=== PATIENT | male | born 1995 | race Hispanic/Latino ===

== ENCOUNTER 2021-03-30 07:46 | Emergency (ER) | payer MEDICAID ==
[~2021-03-30] VITALS: Ht 167.6 cm; Wt 68.9 kg
[2021-03-30 08:16] LABS: BASOPHILS % (AUTO) 0.3 % (0.0-5.0); EOSINOPHILS % (AUTO) 0.9 % (0.0-8.0); HEMATOCRIT 42.6 % (42-54); MEAN CORPUSCULAR HEMOGLOBIN 31.2 pg (27.0-33.0); MEAN CORPUSCULAR HGB CONC 36.2 g/dL (32.0-36.0); MEAN CORPUSCULAR VOLUME 86.2 fL (79-99); MONOCYTES % (AUTO) 7.8 % (3.0-13.0); NEUTROPHILS % (AUTO) 39.8 % (40.0-77.0); PLATELET COUNT (AUTO) 302 K/uL (130-400); RED BLOOD CELL COUNT(AUTO) 4.94 MIL/uL (4.50-6.20); RED CELL DISTRIBUTION WIDTH 12.2 % (11.0-15.5)
[2021-03-30 08:27] LABS: APPEARANCE,URINE Clear (CLEAR); BILIRUBIN,URINE Negative (NEGATIVE); COLOR,URINE Yellow (YELLOW); GLUCOSE, URINE (UA) Negative (NEGATIVE); KETONES,URINE Negative (NEGATIVE); LEUKOCYTE ESTERASE ,URINE Negative (NEGATIVE); NITRATE,URINE Negative (NEGATIVE); OCCULT BLOOD,URINE Negative (NEGATIVE); PROTEIN,URINE Negative (NEGATIVE); UROBILINOGEN,URINE 0.2 mg/dL (0.2-1.0)
[2021-03-30 08:27] LABS: CREATININE 0.9 mg/dL (0.5-1.5); POTASSIUM 3.5 mmol/L (3.5-5.1)
[2021-03-30 08:31] LABS: AMPHET/METH SCREEN,URINE NEGATIVE (NEGATIVE); BARBITURATE SCREEN, URINE NEGATIVE (NEGATIVE); BENZODIAZEPINES SCREEN,URINE NEGATIVE (NEGATIVE); CANNABINOID SCREEN,URINE NEGATIVE (NEGATIVE); COCAINE SCREEN,URINE NEGATIVE (NEGATIVE); OPIATE SCREEN,URINE NEGATIVE (NEGATIVE); PHENCYCLIDINE SCREEN,URINE NEGATIVE (NEGATIVE)
[2021-03-30 08:32] LABS: ALBUMIN 4.2 g/dL (3.5-5.0); BILIRUBIN,TOTAL 0.4 mg/dL (0.2-1.0); TOTAL PROTEIN, SERUM 7.8 g/dL (6.0-8.3)
[2021-03-30] MEDS ORDERED: PRED50TA2 PO (09:58)
[2021-03-30] MEDS ORDERED: PREDNISONE 20 MG TABLET PO SCH (10:00)
[2021-03-30 10:32] VITALS: BP 135/80
== END 2021-03-30 10:34 | disposition home or self-care (01) ==
LOC: EDH 07:46
DX: G51.0 Bell's palsy (principal); Z79.52 Long term (current) use of systemic steroids
CPT/HCPCS: 36415; 80053; 80305; 81003; 84484; 85025; 93005

== ENCOUNTER 2024-11-23 02:14 | Emergency (ER) | payer SELFPAY ==
[~2024-11-23] VITALS: Ht 167.6 cm; Wt 76.7 kg
[~2024-11-23 02:14] MED LIST: PRED50TA2 PO
--- NOTE | 2024-11-23 02:17 | NUR ---
REPORT TO ONEIDA CARMEN
[2024-11-23] MEDS ORDERED: KETO10 PO (02:41)
--- NOTE | 2024-11-23 02:42 | ERN ---
General Chief Complaint: Tooth Ache/Pain Stated Complaint: TOOTHACHE Time Seen by MD: 02:22 Source: patient History of Present Illness Initial Comments 29-year-old male otherwise healthy comes in with right upper molar tooth pain from dental decay that he can no longer control with [id number] medications such as Anbesol or Orajel. He is here for pain medications. I offe red to give him a shot and he said no I do not want a shot I will just take a prescription. Allergies: Coded Allergies: No Known Drug Allergies (Unverified Allergy, Unknown, 03/30/21) Home Meds Active Scripts Prednisone (Prednisone) 50 Mg Tablet, 50 MG PO DAILY, #7 TAB Prov:SHALONDA KOHLI MD 03/30/21 Past Medical History Past Medical History: No Pertinent History Past Surgical History: None Social History Social History: Negative, Lives with family Constitutional: (-) chills, (-) diaphoresis, (-) fever, (-) malaise, (-) weakness, (-) other documentation EENTM: (-) eye pain, (-) blurred vision, (-) tearing, (-) double vision, (-) ear pain, (-) ear discharge, (-) nose pain, (-) nose congestion, (-) throat pain, (-) Throat swelling, (-) mouth pain, (-) tooth pain, (-) mouth swelling, (-) other documentation Respiratory: (-) cough, (-) orthopnea, (-) short of breath, (-) stridor, (-) wheezing, (-) other documentation Cardiovascular: (-) chest pain, (-) edema, (-) palpitations, (-) syncope, (-) dyspnea on exertion, (-) other documentation Gastrointestinal/Abdominal: (-) nausea, (-) vomiting, (-) diarrhea, (-) abdominal pain, (-) abdominal distention, (-) constipation, (-) rectal bleeding, (-) dark stool/melena, (-) other documentation Musculoskeletal: (-) Neck pain, (-) back pain, (-) Flank Pain, (-) joint pain, (-) joint swelling, (-) muscle pain, (-) muscle stiffness, (-) gout, (-) other documentation Physical Exam Ear, Nose, Throat Comment Patient has an obvious dental carry on his right upper molar. The surrounding gum is not swollen is not red is not bleeding and does not have any purulent drainage. There is minimal tenderness in the mandibular angle region and no swollen lymph nodes. [facility] I will give the patient an oral pain medication and send a script. I explained to him that he does not need antibiotics and he does know that we do not have dental services here. ED Course Vital Signs Date Time Temp Pulse Resp B/P (MAP) Pulse Ox O2 Delivery O2 Flow Rate FiO2 11/23/24 02:31 98.4 68 17 146/86 98 Room Air* 0 21 11/23/24 02:15 98.4 74 18 144/94 99 Room Air DX & DISP Disposition: Discharge Departure Impression: Primary Impression: Dental caries Condition: Stable Scripts Ketorolac Tromethamine (Toradol) 10 Mg Tab 1 TAB PO Q6HPRN PRN for pain for 5 Days, #20 TAB 0 Refills Prov: ALTON SHUKLA MD 11/23/24 Additional Instructions: We can only provide pain control here in the ED and only for a limited time. You need to see a dentist to have this tooth repaired. Currently you have no signs of an infection and you do not need antibiotics. If you notice increased swelling in her face with redness or increased difficulty swallowing please come back to the emergency room or see your primary care doctor for antibiotics. Referrals: SELF,REFERRAL (PCP) ALTON SHUKLA MD Nov 23, 2024 02:42
[2024-11-23 03:09] VITALS: BP 131/88; PULSE 65; RESP 17; TEMP 98.4; O2SAT 99
== END 2024-11-23 03:12 | disposition home or self-care (01) ==
LOC: EDH 02:14
DX: K02.9 Dental caries, unspecified (principal); Z79.52 Long term (current) use of systemic steroids
CPT/HCPCS: 99283